=== PATIENT | male | born 1960 | race Caucasian/White ===

== ENCOUNTER 2020-06-07 10:32 | Emergency (ER) | payer OTHER, BC ==
[~2020-06-07] VITALS: Ht 177.8 cm; Wt 85.9 kg
[~2020-06-07 10:32] MED LIST: CYCL-120 PO
[2020-06-07] MEDS ORDERED: HYDROcodone/acetaminophen 5mg/325mg tablet PO ONE (11:45)
[2020-06-07] MEDS ORDERED: iohexol 300mg/ml 100ml inj. ONE (11:52)
[2020-06-07 12:12] LABS: BASOPHILS # (AUTO) 0.1 X10'3 (0-0.2); BASOPHILS % (AUTO) 0.5 % (0-1); EOSINOPHILS % (AUTO) 0.4 % (0-6); HEMATOCRIT 42.7 % (42.0-52.0); HEMOGLOBIN 14.6 g/dl (14.0-17.9); LYMPHOCYTES % (AUTO) 16.9 % (21-51); MEAN CORPUSCULAR HEMOGLOBIN 30.7 PG (27.0-31.0); MEAN CORPUSCULAR HGB CONC 34.2 g/dL (33.0-36.5); MEAN CORPUSCULAR VOLUME 89.8 FL (78-98); MONOCYTES # (AUTO) 1.1 X10'3 (0-0.9); MONOCYTES % (AUTO) 9.5 % (2-12); NEUTROPHILS # (AUTO) 8.6 X10'3 (1.8-7.7); NEUTROPHILS % (AUTO) 72.7 % (42-75); PLATELET COUNT 239 X10'3 (140-440); RED BLOOD COUNT 4.76 X10'6 (4.70-6.10); RED CELL DISTRIBUTION WIDTH 12.4 % (11.5-14.5); WHITE BLOOD COUNT 11.9 X10'3 (4.5-11.0)
--- NOTE | 2020-06-07 12:18 | NUR ---
CHECKED IN ON PT PAIN IS 6/10 INSTEAD OF 9/10, VS UPDATED
[2020-06-07 12:20] LABS: ALBUMIN 3.2 G/DL (3.4-5.0); ANION GAP 9 (8-16); BLOOD UREA NITROGEN 22 MG/DL (7-18); BUN/CREATININE RATIO 19.1 (5.4-32.0); CALCIUM 9.2 MG/DL (8.5-10.1); CHLORIDE 96 MMOL/L (99-107); CREATININE 1.15 MG/DL (0.60-1.10); GLUCOSE 372 MG/DL (70-104); SODIUM 131 MMOL/L (135-145); TOTAL CARBON DIOXIDE 25.8 MMOL/L (24-32); eGFR 65 ML/MIN
[2020-06-07] MEDS ORDERED: clindamycin 600mg/D5W 50ml 50 ML IV ONE (13:35)
[2020-06-07] MEDS ORDERED: CefTRIAXone 2gm/D5W 50ml 50 ML IV ONE (14:05)
[2020-06-07] MEDS ORDERED: morphine 4 MG/ML inj SYRINge IV ONE (14:15)
[2020-06-07] MEDS ORDERED: CefTRIAXone inj 2,000 MG in normal saline 100ml IV soln 100 ML IV ONE (14:15)
--- NOTE | 2020-06-07 14:34 | NUR ---
ABX STARTED AND VS UPDATED, [facility]
[2020-06-07 17:34] VITALS: BP 150/95
--- NOTE | 2020-06-07 17:42 | NUR ---
talked to pts and informed her that [facility] getting [facility]
[2020-06-08] MEDS ORDERED: MESSAGE TO NURSING PO NR (10:00)
== END 2020-06-07 17:42 | disposition short-term general hospital (02) ==
LOC: ER 10:33
DX: L02.11 Cutaneous abscess of neck (principal); E11.9 Type 2 diabetes mellitus without complications; G89.29 Other chronic pain; Z79.899 Other long term (current) drug therapy
CPT/HCPCS: 36415; 70491; 80048; 84145; 85025; 93005; 96365; 96366; 96368; 96375; 99285; J0696; J2270; Q9967; J3490

== ENCOUNTER 2022-10-29 15:13 | Emergency (ER) | payer BC, OTHER ==
[~2022-10-29] VITALS: Ht 177.8 cm; Wt 84.1 kg
[2022-10-29 15:39] VITALS: BP 137/85
[2022-10-29] MEDS ORDERED: LIDOcaine 1% W/epiNEPHrine 1:100,000 20ml vial IJ ONE (18:00)
[2022-10-29] MEDS ORDERED: TETanus/Pertussis (Acell)/Diphther VAC/PF (Tdap-Adult) 0.5ml syringe IMVAC ONE (18:00)
[2022-10-29] MEDS ORDERED: bacitracin 15gm ointment TP ONE (18:00)
== END 2022-10-29 18:41 | disposition home or self-care (01) ==
LOC: ER 15:16
DX: S01.21XA Laceration without foreign body of nose, initial encounter (principal); G89.29 Other chronic pain; M54.9 Dorsalgia, unspecified; E11.9 Type 2 diabetes mellitus without complications; Z79.899 Other long term (current) drug therapy; X58.XXXA Exposure to other specified factors, initial encounter; Y93.89 Activity, other specified; Y92.89 Other specified places as the place of occurrence of the external cause; Y99.8 Other external cause status
CPT/HCPCS: 12011; 90471; 90715; 99284

== ENCOUNTER 2022-11-05 07:48 | Emergency (ER) | payer BC, OTHER ==
[~2022-11-05] VITALS: Ht 177.8 cm; Wt 85.0 kg
[2022-11-05 08:01] VITALS: BP 130/83
== END 2022-11-05 11:06 | disposition home or self-care (01) ==
LOC: ER 07:48
DX: S01.21XD Laceration without foreign body of nose, subsequent encounter (principal); E11.9 Type 2 diabetes mellitus without complications; G89.29 Other chronic pain; Z79.899 Other long term (current) drug therapy; Z48.02 Encounter for removal of sutures; X58.XXXD Exposure to other specified factors, subsequent encounter
CPT/HCPCS: 99284